=== PATIENT | male | born 1960 | race Caucasian/White ===

== ENCOUNTER → 2018-02-08 | Outpatient (CLI) | payer OTHER ==
[~2018-02-08] MED LIST: LISI1TAB3 PO
== END | disposition home or self-care (01) ==
LOC: STAR 09:42
PROVIDERS: ATTEND Colon & Rectal Surgery
DX: Z01.818 Encounter for other preprocedural examination (principal); R94.31 Abnormal electrocardiogram [ECG] [EKG]
CPT/HCPCS: 93005

== ENCOUNTER 2018-02-15 06:09 | Inpatient (IN) | payer OTHER ==
[~2018-02-15] VITALS: Ht 190.5 cm; Wt 126.8 kg
[2018-02-15] MEDS ORDERED: LACTATED RINGERS 1,000 ML IV SCH (06:35)
[2018-02-15] MEDS ORDERED: FENTANYL PF 250 MCG/5ML ONE (06:43)
[2018-02-15] MEDS ORDERED: MIDAZOLAM 1 MG/ML, 2ML ONE (06:43)
[2018-02-15] MEDS ORDERED: PROPOFOL 10 MG/ML, 20ML ONE (06:46)
[2018-02-15] MEDS ORDERED: ROCURONIUM 10MG/ML,5ML ONE ×2 (06:47→08:06)
[2018-02-15] MEDS ORDERED: GLYCOPYRROLATE 0.4 MG/2 ML, 2ML ONE ×2 (06:50→08:49)
[2018-02-15] MEDS ORDERED: NEOSTIGMINE 1 MG/ML, 10ML ONE (06:50)
[2018-02-15] MEDS ORDERED: EPINEPHRINE 1 MG/ML, 1ML ONE (06:55)
[2018-02-15] MEDS ORDERED: BUPIVACAINE/PF 0.5% ONE (06:55)
[2018-02-15] MEDS ORDERED: PHENYLEPHRINE 10 MG/ML ONE (07:24)
[2018-02-15] MEDS ORDERED: ONDANSETRON 2MG/ML, 2ML IVPush PRN (07:30)
[2018-02-15] MEDS ORDERED: PROMETHAZINE 12.5 MG SUPP PR PRN (07:30)
[2018-02-15] MEDS ORDERED: hydrALAzine 20 MG/ML, 1ML IV PRN (07:30)
[2018-02-15] MEDS ORDERED: morphine SULFATE 10 MG/ML, 1ML IV PRN (07:30)
[2018-02-15] MEDS ORDERED: ACETAMINOPHEN 325 MG TABLET PO PRN (07:30)
[2018-02-15] MEDS ORDERED: LABETALOL 5MG/ML, 20ML IV PRN (07:30)
[2018-02-15] MEDS ORDERED: PROMETHAZINE 25 MG/ML, 1ML IV PRN (07:30)
[2018-02-15] MEDS ORDERED: OXYcodone 5 MG/5 ML ORAL.SOL UDC PO PRN (07:30)
[2018-02-15] MEDS ORDERED: MEPERIDINE/PF 25MG/0.5ML IVPush PRN (07:30)
[2018-02-15] MEDS ORDERED: HYDROmorphone 1 MG/ML, 1ML IV PRN (07:30)
[2018-02-15] MEDS ORDERED: EPHEDRINE 50 MG/ML, 1ML ONE (07:58)
[2018-02-15] MEDS ORDERED: WATER-INJECTION,STERILE 10 ML IV ONE (07:59)
[2018-02-15] MEDS ORDERED: BUPIVACAINE/PF 0.5% INFIL ONE (08:02)
[2018-02-15] MEDS ORDERED: FENTANYL PF 100 MCG/2ML ONE (09:30)
[2018-02-15] MEDS ORDERED: OXYcodone 5 MG/5 ML ORAL.SOL UDC ONE (09:30)
[2018-02-15] MEDS ORDERED: ACETAMINOPHEN 650 MG/20.3 ML UDC ONE (09:30)
[2018-02-15] MEDS: FENTANYL PF 100 MCG/2ML IV PRN ×2 (09:35→10:08)
[2018-02-15] MEDS ORDERED: KETOROLAC 30 MG/1 ML ONE (09:41)
[2018-02-15] MEDS ORDERED: KETOROLAC 30 MG/1 ML IVPush PRN (10:00)
[2018-02-15] MEDS ORDERED: DEXAMETHASONE 4 MG/ML, 1ML IVPush PRN (12:30)
[2018-02-15] MEDS ORDERED: LORazepam 2 MG/ML, 1ML IVPush PRN (12:30)
[2018-02-15] MEDS ORDERED: DIPHENHYDRAMINE 50 MG/ML, 1ML IVPush PRN (12:30)
[2018-02-15] MEDS ORDERED: MORPHINE SULFATE 4 MG/ML, 1ML IVPush PRN (12:30)
[2018-02-15] MEDS ORDERED: LORazepam 1MG TABLET PO PRN (12:30)
[2018-02-15] MEDS ORDERED: ONDANSETRON 2MG/ML, 2ML IV PRN (12:30)
[2018-02-15] MEDS ORDERED: DIPHENHYDRAMINE 25 MG CAPSULE PO PRN (12:30)
[2018-02-15] MEDS ORDERED: CALCIUM CARBONATE 500 MG TAB.CHEW PO PRN (12:30)
[2018-02-15 13:56] VITALS: BP 93/55
[2018-02-15] MEDS: ACETAMINOPHEN 325 MG TABLET PO SCH ×2 (15:41→21:39)
[2018-02-15] MEDS: KETOROLAC 30 MG/1 ML IVPush SCH ×2 (15:41→21:39)
[2018-02-15] MEDS: OXYcodone IR 5MG TABLET PO PRN ×2 (16:35→21:39)
[2018-02-15 19:03] VITALS: BP 98/59
[2018-02-16 00:05] VITALS: BP 97/51
[2018-02-16] MEDS: LACTATED RINGERS 1,000 ML IV SCH ×2 (01:31→21:00)
[2018-02-16] MEDS: OXYcodone IR 5MG TABLET PO PRN ×5 (03:34→22:34)
[2018-02-16] MEDS: KETOROLAC 30 MG/1 ML IVPush SCH (03:35)
[2018-02-16] MEDS: ACETAMINOPHEN 325 MG TABLET PO SCH ×4 (03:35→22:35)
[2018-02-16 04:56] VITALS: BP 102/61
[2018-02-16 05:14] LABS: BASOPHILS # (AUTO) 0.04 x10^3/uL (0-0.1); BASOPHILS % (AUTO) 1 % (0-1); EOSINOPHILS # (AUTO) 0.56 x10^3/uL (0-0.4); EOSINOPHILS % (AUTO) 8 % (1-7); LYMPHOCYTES # (AUTO) 1.51 x10^3/uL (1-3.4); LYMPHOCYTES % (AUTO) 21 % (22-44); MD NO; MEAN CORPUSCULAR HEMOGLOBIN 23.9 pg (27.5-34.5); MEAN CORPUSCULAR HGB CONC 32.3 g/dL (33.2-36.2); MEAN CORPUSCULAR VOLUME 73.9 fL (81-97); MEAN PLATELET VOLUME 8.6 fL (7.4-10.4); MONOCYTES % (AUTO) 11 % (2-9); NEUTROPHILS # (AUTO) 4.38 x10^3/uL (1.8-6.8); NEUTROPHILS % (AUTO) 60 % (42-75); PLATELET COUNT 191 x10^3/uL (130-400); RED BLOOD COUNT 4.46 x10^6/uL (4.38-5.82); RED CELL DISTRIBUTION WIDTH 21.5 % (9.4-14.8)
[2018-02-16 05:28] LABS: CHLORIDE 99 mmol/L (98-107)
[2018-02-16 05:39] LABS: ANION GAP 12 mmol/L (5-15); CALCIUM 8.3 mg/dL (8.5-10.1); CREATININE 1.38 mg/dL (0.7-1.3)
[2018-02-16 06:50] VITALS: BP 101/59
[2018-02-16] MEDS: ENOXAPARIN 40 MG/0.4 ML SQ SCH (08:31)
[2018-02-16] MEDS: SODIUM CHLORIDE FLUSH 10ML SYR IVF SCH ×2 (08:36→22:36)
[2018-02-16] MEDS: LISINOPRIL 10 MG TABLET PO SCH (08:41)
[2018-02-16] MEDS: HYDROCHLOROTHIAZIDE 12.5 MG CAPSULE PO SCH (08:41)
[2018-02-16 14:20] VITALS: BP 113/66
[2018-02-16 19:16] VITALS: BP 107/50
[2018-02-17] MEDS: OXYcodone IR 5MG TABLET PO PRN ×2 (02:46→09:21)
[2018-02-17] MEDS: ACETAMINOPHEN 325 MG TABLET PO SCH ×2 (02:47→09:20)
[2018-02-17 02:50] VITALS: BP 104/67
[2018-02-17 05:39] LABS: BASOPHILS # (AUTO) 0.03 x10^3/uL (0-0.1); BASOPHILS % (AUTO) 0 % (0-1); EOSINOPHILS # (AUTO) 0.62 x10^3/uL (0-0.4); EOSINOPHILS % (AUTO) 10 % (1-7); LYMPHOCYTES # (AUTO) 1.09 x10^3/uL (1-3.4); LYMPHOCYTES % (AUTO) 17 % (22-44); MD NO; MEAN CORPUSCULAR HEMOGLOBIN 24.1 pg (27.5-34.5); MEAN CORPUSCULAR HGB CONC 32.6 g/dL (33.2-36.2); MEAN CORPUSCULAR VOLUME 73.7 fL (81-97); MEAN PLATELET VOLUME 9.3 fL (7.4-10.4); MONOCYTES # (AUTO) 0.72 x10^3/uL (0.2-0.8); MONOCYTES % (AUTO) 11 % (2-9); NEUTROPHILS # (AUTO) 3.97 x10^3/uL (1.8-6.8); NEUTROPHILS % (AUTO) 62 % (42-75); PLATELET COUNT 204 x10^3/uL (130-400)
[2018-02-17 05:50] LABS: ANION GAP 8 mmol/L (5-15); CALCIUM 8.3 mg/dL (8.5-10.1); CHLORIDE 106 mmol/L (98-107); CREATININE 1.13 mg/dL (0.7-1.3)
[2018-02-17 07:37] VITALS: BP 115/75
[2018-02-17] MEDS: ENOXAPARIN 40 MG/0.4 ML SQ SCH (07:39)
[2018-02-17] MEDS: HYDROCHLOROTHIAZIDE 12.5 MG CAPSULE PO SCH (07:41)
[2018-02-17] MEDS: LISINOPRIL 10 MG TABLET PO SCH (07:41)
[2018-02-17] MEDS ORDERED: OXYC1TAB7 PO (08:58)
[2018-02-17] MEDS: SODIUM CHLORIDE FLUSH 10ML SYR IVF SCH (09:22)
[2018-02-17 10:30] VITALS: BP 108/74
== END 2018-02-17 10:47 | disposition home or self-care (01) | DRG 331 ==
LOC: ORIP 06:09 → 4NOR 10:58
PROVIDERS: ADMIT Colon & Rectal Surgery; ATTEND Colon & Rectal Surgery
PROC: 0DTF4ZZ Resection of Right Large Intestine, Percutaneous Endoscopic Approach (ICD-10-PCS; principal; 2018-02-15 07:30)
DX: C18.0 Malignant neoplasm of cecum (principal); E61.1 Iron deficiency; E66.9 Obesity, unspecified; I10 Essential (primary) hypertension; Z80.9 Family history of malignant neoplasm, unspecified; Z82.49 Family history of ischemic heart disease and other diseases of the circulatory system; Z83.3 Family history of diabetes mellitus; Z72.89 Other problems related to lifestyle; Z68.34 Body mass index [BMI] 34.0-34.9, adult
CPT/HCPCS: 36415; 80048; 82040; 83735; 85025; 86850; 86900; 88309; J0171; J1650; J1885; J2250; J2704; J2710; J3010; J3490; C1765; J2370; J7120